=== PATIENT | female | born 1945 | race Hispanic/Latino ===

== ENCOUNTER 2019-01-24 09:52 | Outpatient (CLI) | payer MEDICARE ==
--- NOTE | 2019-01-24 15:52 | NM ---
NUCLEAR MEDICINE BRAIN IMAGING: HISTORY: Myopathy, unspecified. TECHNIQUE: A DaTscan with axial tomographic images of the brain was obtained three hours following the intraveno us administration of 4.5 millicuries of Iodine-123 Ioflupane. The patient was pretreated with 130 mg of potassium iodide one hour prior to the injection. FINDINGS: There is loss of normal symmetric uptake in the striata with decreased tracer localization at the pos terior aspect on the left. IMPRESSION: Findings suggestive of parkinsonian syndrome. POS: OFF
== END 2019-01-24 09:53 | disposition home or self-care (01) ==
LOC: NM 09:52
PROVIDERS: ATTEND Psychiatry & Neurology Neurology
DX: G72.9 Myopathy, unspecified (principal)
CPT/HCPCS: 78607; A9584

== ENCOUNTER 2023-03-16 15:07 | Emergency (ER) | payer MEDICARE ==
[2023-03-16 15:51] LABS: #Eosinphils 0.2 thou/uL (0.0-0.7); #Lymphocytes 2.7 thou/uL (1.20-3.40); #Monocytes 0.7 thou/uL (0.11-0.59); #Neutrophils 4.3 thou/uL (1.40-6.50); %Basophils 0.5 % (0.0-1.0); %Eosinophils 2.1 % (0.0-10.0); %Lymphocytes 34.5 % (21.0-51.0); %Monocytes 9.2 % (0.0-10.0); %Neutrophils 53.7 % (42.0-75.0); Hemoglobin 15.2 g/dL (12.0-16.0); Mean Corpuscular HGB CONC 34.9 g/dL (32.0-36.0); Mean Corpuscular Hemoglobin 32.9 pg (27.0-31.0); Mean Corpuscular Volume 94.2 fl (78.0-98.0); Platelet Count 184 10x3/uL (130-400); RBC Distribution Width 11.4 % (11.5-14.5); Red Blood Cell (RBC) Count 4.62 mill/uL (4.20-5.40); White Blood Cell (WBC) Count 7.9 10x3/uL (4.8-10.8)
[2023-03-16 16:09] LABS: ALT (SGPT) 13 U/L (8-55); AST (SGOT) 26 U/L (5-34); Albumin 4.2 g/dL (3.4-4.8); Alkaline Phosphatase 93 U/L (40-110); Anion Gap 15 mmol/L (10-20); BUN (Urea Nitrogen) 17 mg/dL (9.8-20.1); Bilirubin, Total 0.5 mg/dL (0.2-1.2); Calc. Creatinine Clearance 0 mL/min (70-130); Calcium 9.6 mg/dL (7.8-10.44); Carbon Dioxide 24 mmol/L (23-31); Chloride 102 mmol/L (98-107); Estimated GFR 82; Globulin 3.9 g/dL (2.4-3.5); Glucose 92 mg/dL (83-110); Potassium 3.8 mmol/L (3.5-5.1); Protein, Total 8.1 g/dL (5.8-8.1); Sodium 137 mmol/L (136-145)
[2023-03-16] MEDS ORDERED: Lidocaine Viscous Sol 2% 15 ml UD Cup ONE (19:16)
[2023-03-16] MEDS ORDERED: Mag-Al 1200 mg/1200 mg/30 ML UDCUP ONE (19:16)
[2023-03-16] MEDS ORDERED: Aspirin Chewable 81 MG TAB ONE (19:16)
== END 2023-03-16 20:43 | disposition home or self-care (01) ==
LOC: ERS 15:07
DX: R07.89 Other chest pain (principal)
CPT/HCPCS: 36415; 71045; 80053; 83880; 84484; 85025; 93005

== ENCOUNTER 2024-03-28 23:44 | Inpatient (IN) | payer MEDICARE, OTHER ==
[2024-03-29 00:10] VITALS: BMI 34.7
[2024-03-29] MEDS ORDERED: Lorazepam 0.5 MG TAB PO PRN (01:26)
[2024-03-29] MEDS: Potassium Bicarbonate/Cit Ac 25 MEQ TAB PO SCH (03:26)
[2024-03-29 03:54] LABS: #Basophils 0.03 10x3/uL (0.0-0.2); %Basophils 0.5 % (0.0-1.0); %Eosinophils 4.5 % (0.0-10.0); %Monocytes 10.2 % (0.0-10.0); %Neutrophils 48.6 % (42.0-75.0); Hematocrit 38.3 % (36.0-47.0); Hemoglobin 12.9 g/dL (12.0-16.0); Mean Corpuscular HGB CONC 33.7 g/dL (32.0-36.0); Mean Corpuscular Hemoglobin 31.5 pg (27.0-31.0); Mean Corpuscular Volume 93.4 fL (78.0-98.0); Platelet Count 167 10x3/uL (130-400); RBC Distribution Width 12.9 % (11.5-14.5)
[2024-03-29 04:11] LABS: Anion Gap 12 mmol/L (10-20); BUN (Urea Nitrogen) 14 mg/dL (9.8-20.1); Calc. Creatinine Clearance 103 mL/min (70-130); Calcium 8.6 mg/dL (7.8-10.44); Carbon Dioxide 22 mmol/L (23-31); Chloride 109 mmol/L (98-107); Estimated GFR 94; Glucose 113 mg/dL (83-110); Potassium 2.8 mmol/L (3.5-5.1); Sodium 140 mmol/L (136-145)
[2024-03-29 04:14] LABS: Troponin I 0.011 ng/mL (< 0.028)
[2024-03-29 04:15] LABS: Magnesium 1.6 mg/dL (1.6-2.6)
[2024-03-29] MEDS: Trospium 20 MG TAB PO SCH (08:15)
[2024-03-29] MEDS: HYDROcodone/Acetaminophen 7.5/325 mg Tablet PO PRN (08:15)
[2024-03-29] MEDS: Primidone 50 MG TAB PO SCH (08:15)
[2024-03-29] MEDS: DULoxetine 20 MG CAP PO SCH (08:15)
[2024-03-29] MEDS: Pantoprazole DR 40 MG TAB PO SCH (08:16)
[2024-03-29] MEDS: levETIRAcetam 500 MG TAB PO SCH (08:16)
[2024-03-29] MEDS: Sertraline 100 MG TAB PO SCH (08:16)
[2024-03-29] MEDS: Folic Acid 1 MG TAB PO SCH (08:17)
[2024-03-29] MEDS ORDERED: Electrolyte Replacement Protocol 1 EACH FS SCH (08:26)
[2024-03-29] MEDS: Heparin 5,000 UNITS/ML VIAL SC SCH (08:33)
[2024-03-29 08:50] LABS: Troponin I 0.012 ng/mL (< 0.028)
[2024-03-29] MEDS: Magnesium 2 GM/50 ML(in water) 2 GM in Premix 1 BAG IVPB SCH (09:46)
[2024-03-29] MEDS: Potassium Chloride 20 MEQ TAB PO SCH (12:02)
[2024-03-29] MEDS: Pregabalin 50 MG CAP PO SCH (15:32)
[2024-03-29] MEDS: Potassium Chloride 8 MEQ TAB PO SCH (20:59)
[2024-03-30 05:18] LABS: Anion Gap 11 mmol/L (10-20); BUN (Urea Nitrogen) 19 mg/dL (9.8-20.1); Calc. Creatinine Clearance 91 mL/min (70-130); Calcium 8.9 mg/dL (7.8-10.44); Carbon Dioxide 24 mmol/L (23-31); Cardiac Risk 6.4 (Less than 4.5); Chloride 108 mmol/L (98-107); Cholesterol 148 mg/dl (< 200 Desired); Estimated GFR 91; Glucose 104 mg/dL (83-110); HDL Cholesterol 23 mg/dL (>60 Neg Risk); LDL Cholesterol, Calculated 100 mg/dL; Potassium 4.1 mmol/L (3.5-5.1); Sodium 139 mmol/L (136-145); Triglycerides 123 mg/dL (Less than 150)
[2024-03-30] MEDS: Magnesium 2 GM/50 ML(in water) 2 GM in Premix 1 BAG IVPB SCH (08:00)
[2024-03-30] MEDS: DULoxetine 20 MG CAP PO SCH (08:02)
[2024-03-30] MEDS: Acetaminophen 325 MG TAB PO PRN (14:14)
[2024-03-30] MEDS: Ondansetron PF 4 MG/2 ML Vial IVP PRN (18:23)
[2024-03-31] MEDS: Sodium Chloride 0.9% 1,000 ML IV SCH (06:12)
[2024-03-31 06:19] LABS: Mean Corpuscular Volume 95.6 fL (78.0-98.0); RBC Distribution Width 13.2 % (11.5-14.5)
[2024-03-31 06:35] LABS: Anion Gap 12 mmol/L (10-20); BUN (Urea Nitrogen) 27 mg/dL (9.8-20.1); Calc. Creatinine Clearance 75 mL/min (70-130); Calcium 8.8 mg/dL (7.8-10.44); Carbon Dioxide 24 mmol/L (23-31); Chloride 108 mmol/L (98-107); Estimated GFR 76; Glucose 104 mg/dL (83-110); Potassium 4.5 mmol/L (3.5-5.1); Sodium 139 mmol/L (136-145)
[2024-03-31 06:39] LABS: #Basophils 0.05 10x3/uL (0.0-0.2); %Basophils 0.9 % (0.0-1.0); %Eosinophils 5.4 % (0.0-10.0); %Lymphocytes 38.2 % (21.0-51.0); %Monocytes 9.2 % (0.0-10.0); %Neutrophils 46.1 % (42.0-75.0); Hematocrit 36.6 % (36.0-47.0); Mean Corpuscular HGB CONC 32.8 g/dL (32.0-36.0); Mean Corpuscular Hemoglobin 31.3 pg (27.0-31.0); Mean Platelet Volume 11.8 fL (7.4-10.4); Platelet Count 174 10x3/uL (130-400); Red Blood Cell (RBC) Count 3.83 mill/uL (4.20-5.40)
[2024-03-31] MEDS ORDERED: Gentamicin 80 MG/2 ML VIAL ONE (09:51)
[2024-03-31] MEDS ORDERED: CEFAZOLIN 2 GM VIAL ONE (09:51)
[2024-03-31] MEDS ORDERED: CEFAZOLIN 1 GM VIAL ONE (09:51)
[2024-03-31] MEDS ORDERED: Midazolam HCl 2 mg/2 ml Vial ONE (10:42)
[2024-03-31] MEDS ORDERED: fentaNYL 50 mcg/mL 1 mL Vial ONE (10:42)
[2024-03-31] MEDS: Cephalexin 250 MG CAP PO SCH (14:36)
[2024-03-31 15:37] VITALS: TEMP 97.5
[2024-03-31 16:27] VITALS: BP 145/67
== END 2024-03-31 17:15 | disposition home health service (06) | DRG 243 ==
LOC: 2NO 23:44 → UNDOADMOB 23:44 → INTOOBSV 23:44 → 2NO 03-29 01:28 → OBSVTOIN 03-30 15:07
PROVIDERS: ADMIT Student in an Organized Health Care Education/Training Program; ATTEND Emergency Medicine
PROC: 0JH606Z Insertion of Pacemaker, Dual Chamber into Chest Subcutaneous Tissue and Fascia, Open Approach (ICD-10-PCS; principal; 2024-03-31)
PROC: 02H63JZ Insertion of Pacemaker Lead into Right Atrium, Percutaneous Approach (ICD-10-PCS; 2024-03-31)
PROC: 02HK3JZ Insertion of Pacemaker Lead into Right Ventricle, Percutaneous Approach (ICD-10-PCS; 2024-03-31)
DX: I44.0 Atrioventricular block, first degree (principal); S22.31XA Fracture of one rib, right side, initial encounter for closed fracture; K76.0 Fatty (change of) liver, not elsewhere classified; M19.90 Unspecified osteoarthritis, unspecified site; E66.9 Obesity, unspecified; F32.A Depression, unspecified; F41.9 Anxiety disorder, unspecified; H26.9 Unspecified cataract; W19.XXXA Unspecified fall, initial encounter; E87.6 Hypokalemia; G40.909 Epilepsy, unspecified, not intractable, without status epilepticus; Z79.899 Other long term (current) drug therapy; Z90.710 Acquired absence of both cervix and uterus
CPT/HCPCS: 33208; 36415; 71045; 80048; 80061; 83735; 84484; 85025; 93306; 99152; 99153; C1785; C1898; J0690; J1580; J1644; J2250; J2405; J3010; J3475; J7050

== ENCOUNTER 2025-10-07 20:47 | Inpatient (IN) | payer MEDICARE ==
[~2025-10-07 20:47] MED LIST: Iopamidol-370 76% 500 ML MDV (1 ML CHARGE) ONE
[2025-10-07] MEDS ORDERED: Ondansetron PF 4 MG/2 ML Vial ONE (22:10)
[2025-10-07] MEDS ORDERED: niCARdipine 25 MG in Sodium Chloride 0.9% 250 ML 250 ML IVPB PRN (22:35)
[2025-10-07 22:56] LABS: #Basophils 0.05 10x3/uL (0.0-0.2); #Eosinophils 0.26 10x3/uL (0.0-0.7); #Monocytes 0.67 10x3/uL (0.11-0.59); #Neutrophils 4.86 10x3/uL (1.40-6.50); %Basophils 0.6 % (0.0-1.0); %Eosinophils 3.3 % (0.0-10.0); %Lymphocytes 26.3 % (21.0-51.0); %Monocytes 8.4 % (0.0-10.0); %Neutrophils 61.1 % (42.0-75.0); Hematocrit 32.6 % (36.0-47.0); Hemoglobin 10.8 g/dL (12.0-16.0); Mean Corpuscular Hemoglobin 31.0 pg (27.0-31.0); Mean Corpuscular Volume 93.7 fL (78.0-98.0); Platelet Count 198 10x3/uL (130-400); Red Blood Cell (RBC) Count 3.48 mill/uL (4.20-5.40); White Blood Cell (WBC) Count 7.95 10x3/uL (4.8-10.8)
[2025-10-07 23:10] LABS: INR-International Normal Ratio 1.1; Prothrombin Time 14.1 sec (12.0-14.7)
[2025-10-07 23:11] LABS: PTT 31.7 sec (22.9-36.1)
[2025-10-07 23:12] LABS: ALT (SGPT) 24 U/L (Less than 34); AST (SGOT) 42 U/L (11-34); Albumin 3.5 g/dL (3.1-4.5); Alkaline Phosphatase 72 U/L (40-110); Anion Gap 10 mmol/L (10-20); BUN (Urea Nitrogen) 19 mg/dL (9.8-20.1); Bilirubin, Total 0.3 mg/dL (0.3-1.2); Calc. Creatinine Clearance 0 mL/min (70-130); Calcium 8.9 mg/dL (7.8-10.44); Carbon Dioxide 23 mmol/L (23-31); Chloride 109 mmol/L (98-107); Globulin 3.3 g/dL (2.4-3.5); Glucose 106 mg/dL (83-110); Potassium 4.0 mmol/L (3.5-5.1); Sodium 138 mmol/L (136-145)
[2025-10-07] MEDS ORDERED: Dextrose 50% Abboject 50 ML SYRINGE SLOW IVP PRN (23:55)
[2025-10-07] MEDS ORDERED: Glucagon 1 MG/ML KIT IM PRN (23:55)
[2025-10-08 01:31] VITALS: BMI 34.5
[2025-10-08] MEDS: Acetaminophen 325 MG TAB PO PRN (01:39)
[2025-10-08] MEDS: Ondansetron PF 4 MG/2 ML Vial IVP PRN (01:43)
[2025-10-08 01:59] LABS: #Basophils 0.04 10x3/uL (0.0-0.2); #Eosinophils 0.25 10x3/uL (0.0-0.7); #Monocytes 0.77 10x3/uL (0.11-0.59); #Neutrophils 6.21 10x3/uL (1.40-6.50); %Basophils 0.4 % (0.0-1.0); %Eosinophils 2.6 % (0.0-10.0); %Lymphocytes 24.4 % (21.0-51.0); %Monocytes 8.0 % (0.0-10.0); %Neutrophils 64.2 % (42.0-75.0); Hematocrit 32.2 % (36.0-47.0); Hemoglobin 10.5 g/dL (12.0-16.0); Mean Corpuscular Hemoglobin 30.8 pg (27.0-31.0); Mean Corpuscular Volume 94.4 fL (78.0-98.0); Platelet Count 193 10x3/uL (130-400); Red Blood Cell (RBC) Count 3.41 mill/uL (4.20-5.40); White Blood Cell (WBC) Count 9.67 10x3/uL (4.8-10.8)
[2025-10-08 02:59] LABS: Anion Gap 13 mmol/L (10-20); BUN (Urea Nitrogen) 17 mg/dL (9.8-20.1); Calc. Creatinine Clearance 60 mL/min (70-130); Calcium 8.9 mg/dL (7.8-10.44); Carbon Dioxide 21 mmol/L (23-31); Chloride 108 mmol/L (98-107); Glucose 91 mg/dL (83-110); Potassium 4.4 mmol/L (3.5-5.1); Sodium 138 mmol/L (136-145)
[2025-10-08] MEDS: Famotidine/PF 20 mg/2ml Vial SLOW IVP SCH (07:34)
[2025-10-08] MEDS: Mupirocin 1 GM TUBE NASAL DECOLONIZATION NASAL SCH (07:34)
[2025-10-08] MEDS: Methocarbamol 500 MG TAB PO SCH (08:57)
[2025-10-08] MEDS: levETIRAcetam 500 MG TAB PO SCH ×2 (13:22→20:57)
[2025-10-08] MEDS: Acetaminophen/Codeine 30-300mg Tablet PO PRN (16:00)
[2025-10-08] MEDS: Primidone 50 MG TAB PO SCH (20:57)
[2025-10-09 04:07] LABS: #Basophils 0.03 10x3/uL (0.0-0.2); #Eosinophils 0.20 10x3/uL (0.0-0.7); #Monocytes 0.49 10x3/uL (0.11-0.59); #Neutrophils 2.42 10x3/uL (1.40-6.50); %Basophils 0.6 % (0.0-1.0); %Eosinophils 4.0 % (0.0-10.0); %Lymphocytes 37.7 % (21.0-51.0); %Monocytes 9.7 % (0.0-10.0); %Neutrophils 47.8 % (42.0-75.0); Hematocrit 28.3 % (36.0-47.0); Hemoglobin 9.2 g/dL (12.0-16.0); Mean Corpuscular Hemoglobin 30.8 pg (27.0-31.0); Mean Corpuscular Volume 94.6 fL (78.0-98.0); Platelet Count 169 10x3/uL (130-400); Red Blood Cell (RBC) Count 2.99 mill/uL (4.20-5.40); White Blood Cell (WBC) Count 5.06 10x3/uL (4.8-10.8)
[2025-10-09 04:28] LABS: Anion Gap 8 mmol/L (10-20); BUN (Urea Nitrogen) 12 mg/dL (9.8-20.1); Calc. Creatinine Clearance 68 mL/min (70-130); Calcium 8.1 mg/dL (7.8-10.44); Carbon Dioxide 22 mmol/L (23-31); Chloride 113 mmol/L (98-107); Glucose 108 mg/dL (83-110); Potassium 4.1 mmol/L (3.5-5.1); Sodium 139 mmol/L (136-145)
[2025-10-09] MEDS: DULoxetine 20 MG CAP PO SCH (09:44)
[2025-10-09] MEDS: Methocarbamol 500 MG TAB PO PRN (09:44)
[2025-10-09] MEDS: Pantoprazole 40 MG DR.TAB PO SCH (09:46)
[2025-10-09] MEDS: hydrALAZINE 20 MG/ML VIAL SLOW IVP PRN (20:45)
[2025-10-10 05:00] LABS: #Basophils 0.03 10x3/uL (0.0-0.2); #Eosinophils 0.24 10x3/uL (0.0-0.7); #Monocytes 0.48 10x3/uL (0.11-0.59); #Neutrophils 1.80 10x3/uL (1.40-6.50); %Basophils 0.6 % (0.0-1.0); %Eosinophils 5.1 % (0.0-10.0); %Lymphocytes 45.8 % (21.0-51.0); %Monocytes 10.1 % (0.0-10.0); %Neutrophils 38.0 % (42.0-75.0); Hematocrit 27.5 % (36.0-47.0); Hemoglobin 8.9 g/dL (12.0-16.0); Mean Corpuscular Hemoglobin 30.6 pg (27.0-31.0); Mean Corpuscular Volume 94.5 fL (78.0-98.0); Platelet Count 164 10x3/uL (130-400); Red Blood Cell (RBC) Count 2.91 mill/uL (4.20-5.40); White Blood Cell (WBC) Count 4.74 10x3/uL (4.8-10.8)
[2025-10-10 05:16] LABS: Anion Gap 9 mmol/L (10-20); BUN (Urea Nitrogen) 9 mg/dL (9.8-20.1); Calc. Creatinine Clearance 98 mL/min (70-130); Calcium 7.9 mg/dL (7.8-10.44); Carbon Dioxide 21 mmol/L (23-31); Chloride 112 mmol/L (98-107); Glucose 90 mg/dL (83-110); Potassium 3.7 mmol/L (3.5-5.1); Sodium 138 mmol/L (136-145)
[2025-10-10 16:12] VITALS: BP 116/66; TEMP 98.5
== END 2025-10-10 17:10 | disposition home or self-care (01) | DRG 86 ==
LOC: ERS 20:47 → CCU 23:55 → 2SE 10-08 12:51
PROVIDERS: ADMIT Surgery Trauma Surgery; ATTEND Surgery Trauma Surgery
DX: S06.6X0A Traumatic subarachnoid hemorrhage without loss of consciousness, initial encounter (principal); F33.9 Major depressive disorder, recurrent, unspecified; W19.XXXA Unspecified fall, initial encounter; R40.2362 Coma scale, best motor response, obeys commands, at arrival to emergency department; R40.2252 Coma scale, best verbal response, oriented, at arrival to emergency department; R40.2142 Coma scale, eyes open, spontaneous, at arrival to emergency department; F41.9 Anxiety disorder, unspecified; G43.909 Migraine, unspecified, not intractable, without status migrainosus; I10 Essential (primary) hypertension; M19.90 Unspecified osteoarthritis, unspecified site; R42 Dizziness and giddiness; Z85.72 Personal history of non-Hodgkin lymphomas; Z79.899 Other long term (current) drug therapy; Z90.710 Acquired absence of both cervix and uterus; Z88.8 Allergy status to other drugs, medicaments and biological substances
CPT/HCPCS: 36415; 70450; 71260; 72125; 74177; 80048; 80053; 85025; 85610; 85730; 86850; 86900; 86901; 93005; 96374; 96375; J0360; J1308; J2270; J2272; J2405; J7030; Q9967